=== PATIENT | male | born 1975 | race Hispanic/Latino ===

== ENCOUNTER 2018-04-15 10:59 | Emergency (ER) | payer BC ==
[2018-04-15] MEDS ORDERED: ORPHENADRINE CITRATE 30 MG/ML ML ONE (11:37)
[2018-04-15] MEDS ORDERED: KETOROLAC TROMETHAMINE 60 MG/2 ML VIAL ONE (11:37)
[2018-04-15 12:26] LABS: APPEARANCE,URINE Clear (CLEAR); BILIRUBIN,URINE Negative (NEGATIVE); COLOR,URINE Yellow (YELLOW); GLUCOSE, URINE (UA) Negative (NEGATIVE); KETONES,URINE Negative (NEGATIVE); LEUKOCYTE ESTERASE ,URINE Negative (NEGATIVE); NITRATE,URINE Negative (NEGATIVE); OCCULT BLOOD,URINE Negative (NEGATIVE); PROTEIN,URINE Negative (NEGATIVE)
== END 2018-04-15 12:40 | disposition home or self-care (01) ==
LOC: EDH 10:59
DX: M54.42 Lumbago with sciatica, left side (principal)
CPT/HCPCS: 72100; 81003; 96372 ×2; 99284; J1885; J2360

== ENCOUNTER 2024-08-16 12:43 | Emergency (ER) | payer BC ==
[~2024-08-16] VITALS: Ht 165.1 cm; Wt 88.5 kg
--- NOTE | 2024-08-16 12:54 | ERN ---
ED Note History of Present Illness Stated Complaint: DOG BITE, LT CALF Chief Complaint: Animal Bite Time Seen by MD: 12:49 Dictation: PATIENT IS A 49-YEAR-OLD MALE HERE WITH A SUPERFICIAL DOG BITE TO THE POSTERIOR LEFT CALF ONSET THIS MORNING WHILE RUNNING. HE STATES HE WAS ON A TRAIL WHEN A DOG THAT LOOKS LIKE SHE HAD JUST HAD A A L OF PUPPIES CAME UP FROM BEHIND HIM AND NIPPED HIM ON THE BACK OF THE LEFT CALF. HE SAID SHE WAS NOT ACTING ABNORMALLY NO FOAMING AT THE MOUTH NO OTHER BEHAVIOR. HE HAD NEVER SEEN THE DOG BEFORE. STATES HE SAW HIS PRIMARY CARE DOCTOR AND HAS ALREADY NOTIFIED AND ANIMAL CONTROL REGARDING THE DOG. PATIENT WAS GIVEN A PRESCRIPTION FOR AUGMENTIN HAS NOT FILLED IT, SENT HERE FOR A TETANUS SHOT. Allergies: Coded Allergies: No Known Allergies (Unverified Allergy, Unknown, 08/16/24) Past Medical History Past Medical History: High Cholesterol Surgical History: Other Surgical History Other: BACK RN Note Reviewed/Agreed w/PFSH: Yes Review of System Dictation CONSTITUTIONAL: NEGATIVE EXCEPT FOR HPI HEAD/FACE: NEGATIVE EXCEPT FOR HPI EENT: NEGATIVE EXCEPT FOR HPI RESPIRATORY: NEGATIVE EXCEPT FOR HPI GASTROINTESTINAL/ABDOMINAL: NEGATIVE EXCEPT FOR HPI GENITOURINARY: NEGATIVE EXCEPT FOR HPI MUSCULOSKELETAL: NEGATIVE EXCEPT FOR HPI INTEGUMENTARY: NEGATIVE EXCEPT FOR HPI SUPERFICIAL PUNCTURE WOUNDS POSTERIOR LEFT CALF NEUROLOGICAL/PSYCH: NEGATIVE EXCEPT FOR HPI HEMATOLOGIC/LYMPHATIC: NEGATIVE EXCEPT FOR HPI ALL SYSTEMS NEGATIVE, EXCEPT NOTED ABOVE. 13 POINT REVIEW OF SYSTEMS ASSESSED AND ALL NEGATIVE EXCEPT FOR ABOVE. Initial Vital Sign VS Vital Signs Date Time Temp Pulse Resp B/P (MAP) Pulse Ox O2 Delivery O2 Flow Rate FiO2 08/16/24 12:47 97.9 71 16 142/81 99 Room Air 0 08/16/24 14:27 21 Physical Exam Dictation VITAL SIGNS REVIEWED GENERAL APPEARANCE: ALERT, ORIENTED X 3, NO ACUTE DISTRESS, WELL DEVELOPED, NOURISHED. HEAD AND FACE: NON-TRAUMATIC. EYES: PERRL, PINK CONJUNCTIVAS, EYELID NO TRAUMA, ANTERIOR CHAMBER WITH ARCUS SENILIS. EARS: PINNAS INTACT AND NO SIGNS OF TRAUMA OR ERYTHEMA EAR CANALS CLEAR AND NO DISCHARGE TM NO ERYTHEMA NOSE: NO DISCHARGE, NO BLEEDING. OROPHARYNX: MOUTH NORMAL, TONGUE PINK, PHARYNX CLEAR,NO ERYTHEMA, TONSILS NO EXUDATES, NO ABSCESSES NOTED, MUCOUS MEMBRANE MOIST NECK: SUPPLE, NON-TENDER, NO THYROMEGALY, NO MASSES, NO JVD, NO BRUITS BREAST:DEFERRED CHEST:NO TENDERNESS, NO CREPITUS, NO PARADOXICAL MOVEMENT, NO RETRACTIONS LUNGS:CLEAR, WELL-VENTILATED, SYMMETRIC, NO RALES, NO WHEEZING, NO RHONCHI, NO STRIDOR, GOOD BREATH SOUNDS BILATERALLY HEART: REGULAR RATE, REGULAR RHYTHM, NO MURMUR, NO GALLOPS VASCULAR: NO PERIPHERAL EDEMA, ABDOMEN: SOFT, POSITIVE BOWEL SOUNDS, NONDISTENDED, NO GUARDING, NONTENDER, NO REBOUND, NO MASSES NO HEPATOMEGALY, NO SPLENOMEGALY, NO WORTHINGTON'S SIGN, NO HERNIAS. RECTAL: DEFERRED GENITAL: DEFERRED NEUROLOGICAL: NORMAL SPEECH, MOTOR FUNCTION INTACT, SENSORY FUNCTION INTACT MUSCULOSKELETAL: NECK NONTENDER, FULL RANGE OF MOTION, BACK NONTENDER, FULL RANGE OF MOTION, EXTREMITIES: NONTENDER, FULL RANGE OF MOTION SKIN: COLOR PINK, DRY, POSTERIOR LEFT CALF WITH TWO SUPERFICIAL PUNCTURE WOUNDS. NO ACTIVE BLEEDING NO NEED FOR REPAIR. LYMPHATIC: DEFERRED Results (Laboratory/Radiology) Labs Reviewed?: Yes ED Course ED Course Orders Procedure Category Date Status Time Neomy PHA 08/16/24 Complete Sulf/Bacitra/Polymyxin 13:00 Tetanus,Diphtheria PHA 08/16/24 Complete Tox [Adult] (Diphther 13:00 Current Medications Medications (Trade) Dose Ordered Sig/Chapis Route PRN Reason Start Time Stop Time Status Last Admin Dose Admin Neomycin/ Polymyxin/ Bacitracin (Triple Antibiotic Ointment) 1 appl ONCE ONCE TP 08/16/24 13:00 08/16/24 13:01 DC 08/16/24 14:19 Tetanus/ Diphtheria Toxoids Adsorbed (DiphthERIA-teTANUS TOXOID [ADULT]/ DECAVAC) 0.5 ml ONCE ONCE IM 08/16/24 13:00 08/16/24 13:01 DC 08/16/24 14:20 Vital Signs Date Time Temp Pulse Resp B/P (MAP) Pulse Ox O2 Delivery O2 Flow Rate FiO2 08/16/24 14:27 97.9 70 16 137/79 99 Room Air* 0 21 08/16/24 12:47 97.9 71 16 142/81 99 Room Air 0 PATIENT WILL BE GIVEN TETANUS UPDATE AND ANTIBIOTIC CREAM APPLIED TO PUNCTURE WOUND. ANIMAL CONTROL HAS ALREADY BEEN NOTIFIED BY THE PATIENT AND PATIENT WAS PRESCRIBED AUGMENTIN BY HIS PRIMARY CARE DOCTOR THAT HAS NOT BEEN STARTED YET. HE WAS INSTRUCTED TO COMPLETE THE COMPLETE POLICE REPORT WITH ANIMAL CONTROL. TAKE ANTIBIOTICS DIRECTED TO GONE AND SEE YOUR PRIMARY CARE DOCTOR Medical Decision Making MDM MEDICAL DECISION-MAKING BASED ON TETANUS UPDATE AND TREATMENT OF SUPERFICIAL WOUND TO POSTERIOR CALF AFTER DOG BITE. PATIENT HAS ALREADY BEEN PRESCRIBED AUGMENTIN AND ANIMAL CONTROL WAS NOTIFIED. TETANUS SHOT WAS UPDATED VERY LOW RISK FOR RABIES AT THIS TIME. PATIENT ADVISED TO COMPLETE THE POLICE REPORT, TAKE ANTIBIOTICS DIRECTED UNTIL GONE. FOLLOW UP WITH HIS PRIMARY CARE DOCTOR FOR MANAGEMENT OF THE WOUND. DX & DISP Disposition: Discharge Departure Impression: Primary Impression: Dog bite of left calf Condition: Stable Additional Instructions: FOLLOW-UP WITH PRIMARY CARE PROVIDER IN 1 TO 2 DAYS. TAKE MEDICATIONS DIRECTED HERE IN THE EMERGENCY ROOM. OKAY TO CONTINUE HOME MEDICATIONS UNLESS OTHERWISE DISCUSSED DURING YOUR VISIT IN THE EMERGENCY ROOM TODAY. RETURN TO YOUR NEAREST EMERGENCY ROOM IF SYMPTOMS WORSEN OR IF THERE IS NO IMPROVEMENT. CALL 911 IF YOU NEED IMMEDIATE ASSISTANCE. TAKE TYLENOL OR MOTRIN [id number] NEEDED AND IF NO CONTRAINDICATIONS ARE PRESENT. INCREASE ORAL HYDRATION. A WOUND CULTURE OR URINE CULTURE WAS ORDERED HERE IN THE EMERGENCY ROOM DEPARTMENT PLEASE FOLLOW-UP WITH PRIMARY CARE PROVIDER AND ADVISE THEM TO GET REPEAT PORTS FROM OUR FACILITY. IF YOU HAD ANY GAURAV WRAP/SPLINTS THAT WERE APPLIED HERE, PLEASE DO NOT REMOVE THEM UNTIL YOU SEE YOUR PRIMARY CARE OR SPECIALTY. TAKE ANTIBIOTICS DIRECTED FROM YOUR DOCTOR UNTIL GONE. APPLY TRIPLE ANTIBIOTIC OINTMENT/[id number] 3 TIMES A DAY FOR FIVE DAYS WITH BAND-AID TO THE WOUNDS TO LEFT CALF. COMPLETE THE ANIMAL CONTROL AND POLICE REPORT. Referrals: SELF,REFERRAL (PCP) Time of Disposition: 13:30 I have reviewed the case, and I agree with, Diagnosis and Plan POOJA MARIE NP August 16, 2024 12:54 SRINATH CHAMPAGNE DO August 16, 2024 18:15
[2024-08-16] MEDS: NEOMY SULF/BACITRA/POLYMYXIN B 1 EACH PACKET TP ONE (14:19)
[2024-08-16] MEDS: teTANUS/diphthERIA TOXOID [ADULT] 0.5 ML VIAL IM ONE (14:20)
--- NOTE | 2024-08-16 14:26 | NUR ---
ANIMAL CONTROL WAS CALLED AFTER BITE CASE NUMBER NOT ON HAND
[2024-08-16 14:27] VITALS: BP 137/79; PULSE 70; RESP 16; TEMP 97.9; O2SAT 99
== END 2024-08-16 14:28 | disposition home or self-care (01) ==
LOC: EDH 12:43
DX: S81.832A Puncture wound without foreign body, left lower leg, initial encounter (principal); E78.00 Pure hypercholesterolemia, unspecified; Z98.890 Other specified postprocedural states; W54.0XXA Bitten by dog, initial encounter; Y93.89 Activity, other specified; Y92.89 Other specified places as the place of occurrence of the external cause; Y99.8 Other external cause status
CPT/HCPCS: 90471; 90714; 99284